=== PATIENT | female | born 1985 | race Caucasian/White ===

== ENCOUNTER 2020-08-16 13:35 | Emergency (ER) | payer MEDICAID, SELFPAY ==
--- NOTE | ~2020-08-16 | XR_ITS ---
EXAMINATION: XR chest 2V EXAM DATE: 08/16/2020 14:29 INDICATION: Mid to left-sided chest pain extending down left arm. TECHNIQUE: Frontal and lateral projections of the chest obtained and reviewed. There is no prior shahid dy for comparison. FINDINGS: The lungs are clear. There are no pleural effusions. The cardiomediastinal silhouette is within normal limits. There is no pneumothorax suspected. The bones and soft tissues are unremarkab le. IMPRESSION: No acute cardiopulmonary findings. Reviewed, dictated and finalized at location A.
--- NOTE | 2020-08-16 13:42 | ECG_ITS ---
Measurements Intervals [place] Rate: 110 P: NM: 0 QRS: 84 QRSD: 80 T: 49 QT: 304 QTc: 412 Interpretive Statements SINUS RHYTHM WITH MARKED SINUS ARRHYTHMIA MINIMAL Q WAVES- INFERIOR LEADS BORDERLINE ECG Electronically Signed On 08-16-2020 14:52:00 CDT by Travis Perez D.O.
[2020-08-16 13:43] VITALS: BP 148/98; PULSE 99; RESP 20; TEMP 36.6; O2SAT 100
[2020-08-16 13:53] LABS: Basophils Absolute Auto 0.1 K/mm3 (0.0-0.1); Basophils Percent Auto 0.6 % (0.2-1.2); Eosinophils Percent Auto 0.2 % (0-4.4); Hematocrit 45.7 % (37.0-47.0); Hemoglobin 14.8 g/dL (12.0-15.0); Immature Granulocyte Absolute 0.06 K/mm3 (0.00-0.031); Immature Granulocyte Percent A 0.5 % (0-0.5); Lymphocytes Absolute Auto 2.52 K/mm3 (0.9-3.2); Lymphocytes Percent Auto 21.7 % (18.3-44.2); Mean Corpuscular HGB Conc 32.4 g/dl (32-36); Mean Corpuscular Hemoglobin 29.8 pg (26-34); Mean Platelet Volume 9.5 fl (7.4-10.4); Monocytes Absolute Auto 0.6 K/mm3 (0.1-0.6); Monocytes Percent Auto 5.1 % (2.6-8.5); Neutrophils Absolute Auto 8.3 K/mm3 (1.3-6.7); Neutrophils Percent Auto 71.9 % (45.5-73.1); Platelet Count Result 402 k/mm3 (150-375); Red Blood Count 4.97 M/mm3 (4.2-5.4); Red Cell Distribution Width 12.5 % (11.5-14.5); White Blood Count 11.6 K/mm3 (4.5-10.0)
[2020-08-16 14:02] LABS: INR 0.9; Prothrombin Time 12.7 Seconds (11.1-14.7)
[2020-08-16 14:03] LABS: Anion Gap 9 mmol/L (8-16); Blood Urea Nitrogen 12 mg/dL (7-17); Calcium 9.7 mg/dL (8.4-10.2); Carbon Dioxide 25 mmol/L (22-30); Chloride 108 mmol/L (98-107); Estimated CRCL calculation 71 ml/min; Estimated Glomerular Filt Rate > 60; Glucose 137 mg/dL (65-105); Partial Thromboplastin Time 27.5 SECONDS (22.3-36.8); Potassium 3.3 mmol/L (3.4-5.0); Sodium 142 mmol/L (137-145)
[2020-08-16 14:15] LABS: Troponin I < 0.012 ng/mL (0.000-0.034)
[2020-08-16 15:00] VITALS: BP 142/99; PULSE 87; RESP 19; O2SAT 100
--- NOTE | 2020-08-16 15:58 | ED.CHESTPAIN ---
HPI - Chest Pain General Chief Complaint: Chest Pain Stated Complaint: cp Time Seen by Provider: 08/16/20 15:23 Source: patient Mode of arrival: ambulatory Limitations: no limitations History of Present Illness HPI narrative: This is a 35 year old female that presents to the ER for nausea, vomiting and diarrhea x 2 days. Associated with lightheadedness. Also reports a constant upper chest pressure. Reports some mild shortness of breath. Denies fever, dysuria, hematuria, or lower extremity edema. Related Data Allergies Allergy/AdvReac Type Severity Reaction Status Date / Time doxycycline Allergy Mild Hives / Verified 12/14/17 11:25 [place] Review of Systems Review of Systems: Narrative: CONSTITUTIONAL: Denies fever CARDIOVASCULAR: Reports chest pain. Denies edema. RESPIRATORY: Reports cough and dyspnea. GASTROINTESTINAL: Reports nausea, vomiting, and diarrhea. Denies abdominal pain GENITOURINARY: Denies dysuria or hematuria. All systems reviewed & are unremarkable except as noted in HPI and below PMFSH Past Medical History Medical History (Updated 08/16/20 @ 17:38 by Charo Oneil PA-C) No active medical problems Social History Social History (Updated 08/16/20 @ 16:00 by Charo Oneil PA-C) Smoking status: Current every day smoker Exam Narrative: Exam Narrative: GENERAL: Well-appearing, well-nourished, and in no acute distress. HEAD: Normocephalic, atraumatic. EYES: PERRLA and EOMI. ENT: Nares clear, no rhinorrhea or epistaxis. Mucous membranes moist. Oropharynx without tonsillar hypertrophy exudate or other lesions. Bilateral TMs pearly brian non-bulging NECK: Supple. No adenopathy or masses. CHEST: Clear to auscultation. No respiratory distress. No wheezes rales or rhonchi HEART: Regular rate and rhythm. No murmur heard. Normal peripheral pulses. ABDOMEN: Soft, nontender, nondistended, normal active bowel sounds. EXTREMITIES: Normal range of motion. No edema. SKIN: Warm, dry, no rash. NEURO: No focal deficits. Alert and oriented x3. Cranial nerves II through XII grossly intact PSYCH: Normal mood and affect Course Vital Signs Vital signs: Vital Signs Temperature 97.9 F 08/16/20 13:43 Pulse Rate 99 08/16/20 13:43 Respiratory Rate 20 08/16/20 13:43 Blood Pressure 148/98 H 08/16/20 13:43 Pulse Oximetry 100 08/16/20 13:43 Temperature 97.9 F 08/16/20 13:43 Pulse Rate 99 08/16/20 13:43 Respiratory Rate 20 08/16/20 13:43 Blood Pressure 148/98 H 08/16/20 13:43 Pulse Oximetry 100 08/16/20 13:43 MDM - Chest Pain MDM Narrative Medical decision making narrative: Patient presents the emergency department for nausea, vomiting and diarrhea. Also reporting lightheadedness and chest discomfort. She is afebrile and nontoxic-appearing. CBC with mild leukocytosis to 11.6. Metabolic panel with mild hypokalemia, patient given dose of potassium in the ED. EKG without concerning findings. Baseline and 3-hour troponin are negative. D-dimer is not elevated. UA without evidence of infection. Bedside test is negative. Chest x-ray is without acute cardiopulmonary abnormalities. Patient and family updated on case findings. She is stable and felt appropriate for further outpatient evaluation. She was given warnings to return to the ER Lab Data Attestation: I reviewed the patient's lab results. Result diagrams: 08/16/20 13:47 08/16/20 13:47 Labs: Lab Results 08/16/20 08/16/20 08/16/20 Range/Units 13:47 13:47 13:47 WBC 11.6 H (4.5-10.0) K/mm3 RBC 4.97 (4.2-5.4) M/mm3 Hgb 14.8 (12.0-15.0) g/dL Hct 45.7 (37.0-47.0) % MCV 92.0 (80-100) fl MCH 29.8 (26-34) pg MCHC 32.4 (32-36) g/dl RDW 12.5 (11.5-14.5) % Plt Count 402 H (150-375) k/mm3 MPV 9.5 (7.4-10.4) fl Immature Gran % (Auto) 0.5 (0-0.5) % Neut % (Auto) 71.9 (45.5-73.1) % Lymph % (Auto) 21.7 (18.3-44.2) % [place] % (
[2020-08-16 16:00] VITALS: BP 143/92; PULSE 81; RESP 19; O2SAT 100
[2020-08-16] MEDS: ASPIRIN 81 MG CHEWABLE TABLET 324 MG PO (16:01)
[2020-08-16] MEDS: SODIUM CHLORIDE 0.9% IV 1,000 ML 999 ML IV CONT (16:12)
[2020-08-16] MEDS: ONDANSETRON INJ 4 MG/2 ML VIAL IV PUSH (16:12)
[2020-08-16 16:29] LABS: Alanine Aminotransferase 13 U/L (4-35); Alkaline Phosphatase 50 U/L (38-126); Aspartate Amino Transferase 32 U/L (14-36); Bilirubin,Total 0.3 mg/dL (0.2-1.3); Lipase 76 U/L (23-300)
[2020-08-16 16:44] LABS: D Dimer 0.27 ug/mL (<0.48)
[2020-08-16 17:01] LABS: Add Urine Microscopic? YES; Appearance Urine Cloudy (Clear); Bacteria Urine Trace /hpf; Bilirubin Urine Negative (Negative); Blood Urine Negative (Negative); Color Urine Yellow (Yellow); Glucose Urine UA Negative (Negative); Ketones Urine 1+ mg/dL (Negative); Leukocyte Esterase Ur Negative LEU/UL (Negative); Mucus Urine Heavy /lpf; Nitrate Urine Negative (Negative); Protein Urine 1+ mg/dL (Negative); Specific Grav Ur 1.021 (1.001-1.035); Squamous Epithelial Cell Urine Occasional /hpf (Few); WBC Urine 0-3 /hpf
[2020-08-16 17:20] LABS: Troponin I < 0.012 ng/mL (0.000-0.034)
[2020-08-16] MEDS: POTASSIUM CHLORIDE 20 MEQ PACKET (FOR LIQUID) 40 MEQ PO (17:56)
== END 2020-08-16 18:11 | disposition home or self-care (01) ==
PROVIDERS: Physician Assistant; Emergency Provider Family Medicine
DX: K21.9 Gastro-esophageal reflux disease without esophagitis (principal); E87.6 Hypokalemia; F17.200 Nicotine dependence, unspecified, uncomplicated
CPT/HCPCS: 36415; 71046; 80048; 80076; 81001; 81025; 83690; 84484; 85025; 85380; 85610; 85730; 93005; 96361; 96374; 99284; A9270; J2405; J7030

== ENCOUNTER 2020-08-30 20:45 | Emergency (ER) | payer MEDICAID, SELFPAY ==
--- NOTE | 2020-08-30 21:33 | PC.NURSE ---
Pt called back to triage at 2123 and 2132. Pt not in waiting room or immediately outside. Presumed to have walked out.
== END 2020-08-30 21:33 | disposition left against medical advice (07) ==
DX: Z53.21 Procedure and treatment not carried out due to patient leaving prior to being seen by health care provider (principal)
CPT/HCPCS: 99199